=== PATIENT | female | born 1970 | race Caucasian/White ===

== ENCOUNTER 2017-06-03 22:06 | Inpatient (IN) | payer OTHER ==
[~2017-06-03] VITALS: Ht 165.1 cm; Wt 83.7 kg
[~2017-06-03 22:06] MED LIST: B COMPLEX1 CAP PO; CIPRO500 MG PO; COLACE100 MG PO; IBU800 M1 PO; IRON325 M1 PO; KENALOG0.5% TP; METHERGINE0.2 MG PO; MOTRIN800 MG PO; NKHM; PRENATAL1 TA1 PO; TRAMADOL HCL50 MG PO; ULTRAM50 MG PO; VISTARIL25 M1 PO; ZANTAC150 MG PO; ZITHROMAX250 MG PO; ZOFRAN ODT4 MG SL; Zofran4 MG PO; [UNRECOGNIZED DRUG - OTHER] PO
[2017-06-03 22:14] VITALS: BP 154/73
[2017-06-03 22:34] LABS: MEAN CELL VOLUME 63.1 fl (81.0-99.0); MEAN CORPUSCULAR HGB 16.2 pg (27.0-31.0); MEAN CORPUSCULAR HGB CONC 25.7 g/dl (33.0-37.0); MEAN PLATELET VOLUME 9.8 fl (9.6-12.3); PLATELET COUNT AUTOMATED 181 10*3/uL (130-400); RED BLOOD COUNT 3.33 10*6/uL (4.10-5.10); RED CELL DISTRI WIDTH 18.3 % (0-14.5); WHITE BLOOD COUNT 5.3 10*3/uL (4.8-10.8)
[2017-06-03 22:38] LABS: BILIRUBIN NEGATIVE (NEGATIVE); BLOOD NEGATIVE (NEGATIVE); CLARITY SL CLOUDY (CLEAR); COLOR YELLOW (YELLOW); GLUCOSE NEGATIVE (NEGATIVE); KETONE NEGATIVE (NEGATIVE); LEUKO ESTERASE NEGATIVE (NEGATIVE); NITRITE NEGATIVE (NEGATIVE); PH 5.5 (5.0-9.0); SPECIFIC GRAVITY >= 1.030 (1.005-1.030)
[2017-06-03 22:42] LABS: HEMOGLOBIN 5.4 g/dl (12.0-16.0)
[2017-06-03 22:43] LABS: BACTERIA TRACE; MUCOUS 2+
[2017-06-03 22:49] LABS: ALBUMIN 3.7 gm/dl (3.1-4.5); ALKALINE PHOSPHATASE 81 U/L (45-117); BUN 12 mg/dl (7-24); CHLORIDE 110 mmol/L (98-107); CREATININE 0.66 mg/dL (0.55-1.02); POTASSIUM 3.5 mmol/L (3.5-5.1); SGOT/AST 13 IU/L (3-35); SGPT/ALT 16 U/L (12-78); SODIUM 142 mmol/L (136-145); TOTAL PROTEIN 7.1 gm/dL (6.4-8.2)
[2017-06-03 22:58] LABS: BASOPHILS 1 % (0-1); MICROCYTOSIS MODERATE; PLATELET SUFFICIENCY NORMAL (NORMAL); TOTAL CELLS COUNTED 100 #CELLS
[2017-06-03 23:00] LABS: OVALOCYTES MODERATE
[2017-06-03 23:01] LABS: ACT PARTIAL THROMBO TIME 23.4 SECONDS (20.8-31.5); INTERNATIONAL NORM RATIO 0.9 (2.0-3.5)
[2017-06-04] VITALS (9 sets, daily range): BP systolic 102–133; BP diastolic 50–80
[2017-06-04 04:41] LABS: HEMATOCRIT 21.7 % (37.0-47.0); MEAN CORPUSCULAR HGB CONC 26.7 g/dl (33.0-37.0); MEAN PLATELET VOLUME 10.1 fl (9.6-12.3); PLATELET COUNT AUTOMATED 135 10*3/uL (130-400); RED BLOOD COUNT 3.22 10*6/uL (4.10-5.10); RED CELL DISTRI WIDTH 21.2 % (0-14.5); WHITE BLOOD COUNT 3.7 10*3/uL (4.8-10.8)
[2017-06-04 04:42] LABS: MEAN CELL VOLUME 67.4 fl (81.0-99.0)
[2017-06-04 04:43] LABS: HEMOGLOBIN 5.8 g/dl (12.0-16.0)
[2017-06-04 04:51] LABS: ACT PARTIAL THROMBO TIME 24.8 SECONDS (20.8-31.5)
[2017-06-04 05:02] LABS: MICROCYTOSIS MODERATE; PLATELET SUFFICIENCY NORMAL (NORMAL); TOTAL CELLS COUNTED 100 #CELLS
[2017-06-04 05:03] LABS: OVALOCYTES FEW
[2017-06-04 05:22] LABS: ALBUMIN 3.1 gm/dl (3.1-4.5); ALKALINE PHOSPHATASE 66 U/L (45-117); BUN 10 mg/dl (7-24); CHLORIDE 111 mmol/L (98-107); CHOLESTEROL 117 mg/dL (<200); HDL CHOLESTEROL 46 mg/dl (40-60); LDL CHOLESTEROL 60 mg/dL (9-159); MAGNESIUM 2.1 mg/dL (1.5-2.1); PHOSPHOROUS 2.5 mg/dL (2.5-4.9); POTASSIUM 3.3 mmol/L (3.5-5.1); SGOT/AST 11 IU/L (3-35); SGPT/ALT 13 U/L (12-78); SODIUM 143 mmol/L (136-145); TRIGLYCERIDES 57 mg/dl (<150); VLDL CHOLESTEROL 11 mg/dL (6-40)
[2017-06-04 08:11] LABS: HEMATOCRIT 23.3 % (37.0-47.0); HEMOGLOBIN 6.7 g/dl (12.0-16.0)
[2017-06-04 12:30] LABS: BASO # 0.1 10*3/uL (0.0-0.1); BASO % 1.3 % (0.0-1.0); EOS # 0.1 10*3/uL (0.0-0.4); EOS % 1.1 % (1.0-4.0); HEMOGLOBIN 8.4 g/dl (12.0-16.0); LYMPH # 0.8 10*3/uL (1.3-4.4); MEAN CORPUSCULAR HGB 20.4 pg (27.0-31.0); MEAN CORPUSCULAR HGB CONC 28.3 g/dl (33.0-37.0); MEAN PLATELET VOLUME 10.2 fl (9.6-12.3); MONO # 0.5 10*3/uL (0.1-1.0); NEUT # 3.3 10*3/uL (2.3-7.9); NEUT % 70.4 % (47.0-73.0); NUCLEATED RED BLOOD CELL 0.4 % (0.0-0.0); PLATELET COUNT AUTOMATED 145 10*3/uL (130-400); RED BLOOD COUNT 4.12 10*6/uL (4.10-5.10); RED CELL DISTRI WIDTH 23.3 % (0-14.5); WHITE BLOOD COUNT 4.7 10*3/uL (4.8-10.8)
[2017-06-04 12:31] LABS: HEMATOCRIT 29.7 % (37.0-47.0); MEAN CELL VOLUME 72.1 fl (81.0-99.0)
[2017-06-04] MEDS ORDERED: B12,B-12,B 12500 MC1 PO (16:11)
[2017-06-04] MEDS ORDERED: FEROSUL325 MG PO (16:11)
[2017-06-08 05:07] LABS: GONOCOCCUS BY NAA Negative (Negative)
== END 2017-06-04 16:37 | disposition home or self-care (01) | DRG 812 ==
LOC: ED 22:06 → EDHOLD 23:56 → 4E 23:56
PROVIDERS: Hospitalist; Internal Medicine; Student in an Organized Health Care Education/Training Program; ADMIT Internal Medicine
PROC: 30233N1 Transfusion of Nonautologous Red Blood Cells into Peripheral Vein, Percutaneous Approach (ICD-10-PCS; principal; 2017-06-04)
DX: D50.9 Iron deficiency anemia, unspecified (principal); E44.1 Mild protein-calorie malnutrition; I10 Essential (primary) hypertension; N83.9 Noninflammatory disorder of ovary, fallopian tube and broad ligament, unspecified; E87.6 Hypokalemia; E53.8 Deficiency of other specified B group vitamins; D72.819 Decreased white blood cell count, unspecified; K57.90 Diverticulosis of intestine, part unspecified, without perforation or abscess without bleeding; N83.209 Unspecified ovarian cyst, unspecified side; Z98.84 Bariatric surgery status; Z90.49 Acquired absence of other specified parts of digestive tract; Z82.49 Family history of ischemic heart disease and other diseases of the circulatory system; Z83.6 Family history of other diseases of the respiratory system; Z79.899 Other long term (current) drug therapy; Z98.890 Other specified postprocedural states; Z68.30 Body mass index [BMI] 30.0-30.9, adult

== ENCOUNTER 2017-09-03 09:01 | Emergency (ER) | payer OTHER ==
[~2017-09-03] VITALS: Ht 167.6 cm; Wt 81.6 kg
[~2017-09-03 09:01] MED LIST changes: +B12,B-12,B 12500 MC1 PO; +FEROSUL325 MG PO
[2017-09-03 09:07] VITALS: BP 142/56
[2017-09-03 09:36] LABS: BASO # 0.1 10*3/uL (0.0-0.1); BASO % 1.7 % (0.0-1.0); EOS # 0.1 10*3/uL (0.0-0.4); EOS % 2.5 % (1.0-4.0); HEMATOCRIT 29.3 % (37.0-47.0); HEMOGLOBIN 8.1 g/dl (12.0-16.0); LYMPH # 1.1 10*3/uL (1.3-4.4); LYMPH % 28.4 % (27.0-41.0); MEAN CELL VOLUME 72.5 fl (81.0-99.0); MEAN CORPUSCULAR HGB CONC 27.6 g/dl (33.0-37.0); MEAN PLATELET VOLUME 10.1 fl (9.6-12.3); MONO # 0.3 10*3/uL (0.1-1.0); MONO % 7.2 % (3.0-9.0); NEUT # 2.4 10*3/uL (2.3-7.9); PLATELET COUNT AUTOMATED 252 10*3/uL (130-400); RED BLOOD COUNT 4.04 10*6/uL (4.10-5.10); RED CELL DISTRI WIDTH 16.8 % (0-14.5)
[2017-09-03 09:49] LABS: ALBUMIN 3.9 gm/dl (3.1-4.5); ALKALINE PHOSPHATASE 83 U/L (45-117); BUN 14 mg/dl (7-24); CHLORIDE 108 mmol/L (98-107); CREATININE 0.72 mg/dL (0.55-1.02); POTASSIUM 3.5 mmol/L (3.5-5.1); SGOT/AST 14 IU/L (3-35); SGPT/ALT 20 U/L (12-78); SODIUM 142 mmol/L (136-145); TOTAL PROTEIN 7.4 gm/dL (6.4-8.2)
[2017-09-03 09:51] LABS: ACT PARTIAL THROMBO TIME 25.2 SECONDS (20.8-31.5); INTERNATIONAL NORM RATIO 0.9 (2.0-3.5)
[2017-09-03 10:03] LABS: RETICULOCYTE % 0.65 % (0.50-2.50)
[2017-09-03 10:08] LABS: IRON 14 ug/dL (50-170); TOTAL IRON BINDING CAPACITY 447 ug/dl (250-450)
== END 2017-09-03 09:58 | disposition home or self-care (01) ==
LOC: ED 09:01
PROVIDERS: Emergency Medicine
DX: D64.9 Anemia, unspecified (principal); R06.02 Shortness of breath; G89.29 Other chronic pain; I10 Essential (primary) hypertension; E87.6 Hypokalemia; E44.1 Mild protein-calorie malnutrition; Z90.49 Acquired absence of other specified parts of digestive tract; Z98.84 Bariatric surgery status; Z79.899 Other long term (current) drug therapy

== ENCOUNTER → 2017-09-04 | Outpatient (CLI) | payer OTHER ==
[2017-09-04 14:15] VITALS: BP 123/75
--- NOTE | 2017-09-04 14:17 | NUR ---
Informed consent obtained from patient for Blood transfussion by Patient identified by arm band. Vital signs recorded. Blood unit number verified by 2 R.N.'s. I.V. site satisfactory. Unit 1 started at a KVO rate with Normal Saline. DIANA VIERA
[2017-09-04 14:40] VITALS: BP 144/68
[2017-09-04 15:20] VITALS: BP 160/82
[2017-09-04 16:00] VITALS: BP 142/82
[2017-09-04 18:55] LABS: HEMOGLOBIN 8.6 g/dl (12.0-16.0)
== END | disposition home or self-care (01) ==
LOC: TRNFUSION 12:39
PROVIDERS: Internal Medicine Hematology & Oncology
DX: D64.9 Anemia, unspecified (principal)

== ENCOUNTER → 2017-12-09 | Day surgery (SDC) | payer OTHER ==
[2017-12-09] VITALS (7 sets, daily range): BP systolic 102–139; BP diastolic 49–69
[~2017-12-09] VITALS: Ht 167.6 cm; Wt 81.6 kg
[~2017-12-09] MED LIST changes: +NORCO 5-325 TA1 EACH PO
--- NOTE | ~2017-12-09 | PROC NOTE ---
[place], [place] PROCEDURE NOTE NAME: LUIS FELIPE MORRIS [facility] [id number] UNIT #: [id number] ROOM: DOCTOR: PANKAJ GOMEZ MD BIRTHDATE: [birth year] DOS: 12/09/2017 PREOPERATIVE DIAGNOSES: Iron deficiency anemia, poor IV access. POSTOPERATIVE DIAGNOSES: Iron deficiency anemia, poor IV access. PROCEDURE: Left internal jugular MediPort placement. SURGEON: Pankaj Gomez MD CRYPTOZOOLOGIST: MABEL. ANESTHESIA: MAC with 1% plain lidocaine. INDICATION: This is a 47-year-old lady who receives frequent iron transfusions for chronic iron deficiency anemia and who has poor IV access, who has been referred for a MediPort placement. The procedure and its complications were explained to the patient in detail preoperatively. Complications that were discussed included but were not limited to, bleeding, hemothorax, pneumothorax, prolonged postoperative pain, infection and she agreed to proceed. DESCRIPTION OF PROCEDURE: After identifying the patient, the patient was brought to the operating suite and laid in the supine position. After IV sedation was administered, the patient was repositioned by placing a shoulder roll under the shoulder blades and turning the patient's head to the right side. The parts were then painted and draped in the usual sterile fashion. A time-out procedure was called. With the help of the ultrasound, the left internal jugular vein was accessed percutaneously. A guidewire was placed, which showed position of the guidewire was in good position with the help of fluoroscopy. Thereafter, local anesthesia was infiltrated in the area of the anterior chest wall where the port was planned to be placed. The skin and the subcutaneous tissue were incised after local anesthesia was infiltrated and a pocket was created in the subcutaneous space. Thereafter, introducer with the catheter was passed from the incision made on the anterior chest wall to the percutaneous access site in the neck. Over the guidewire, the dilator and the sheath were placed and the guidewire was pulled out. The catheter was then threaded through this sheath into the superior vena cava and it was then confirmed by looking at it on fluoroscopy and also talking to the radiologist who confirmed that the placement of the catheter was in the right position. The catheter was cut to size and the port was then attached to the cut end. Heparin was injected and was found to have good flow and there was good flow of blood in the reverse direction. The port was then fixed with the help of 3-0 Prolene to the underlying subcutaneous tissue and the subcutaneous tissue of the incision in the anterior chest wall was approximated with the help of 3-0 Vicryl in a running fashion and the skin edges were approximated with the help of 4-0 Vicryl in a subcuticular running fashion. The access site on the left neck was also closed with the help of a single 4-0 stitch with Vicryl. Dressing was placed and the port was accessed again percutaneously and it was found to have good blood return and good flow to heparin. The patient was then taken to the recovery room in stable fashion where a chest x-ray was ordered. There were no [place], [place] PROCEDURE NOTE NAME: LUIS FELIPE MORRIS JO UNIT #: [id number] ROOM: DOCTOR: PANKAJ GOMEZ MD BIRTHDATE: [address] Pankaj Gomez, the attending surgeon, was present throughout the operating case. Pankaj Gomez MD CM:PROCNOTE:PROCEDURE NOTE [id number] PANKAJ GOMEZ MD
== END | disposition home or self-care (01) ==
LOC: SDC 12-07 14:00
DX: Z45.2 Encounter for adjustment and management of vascular access device (principal); D50.0 Iron deficiency anemia secondary to blood loss (chronic); I10 Essential (primary) hypertension; Z98.84 Bariatric surgery status; Z90.49 Acquired absence of other specified parts of digestive tract; Z98.890 Other specified postprocedural states; Z80.9 Family history of malignant neoplasm, unspecified

== ENCOUNTER 2018-05-02 19:19 | Emergency (ER) | payer OTHER ==
[~2018-05-02] VITALS: Ht 167.6 cm; Wt 81.6 kg
[2018-05-02 19:22] VITALS: BP 130/59
== END 2018-05-02 20:49 | disposition home or self-care (01) ==
LOC: ED 19:19
DX: T82.898A Other specified complication of vascular prosthetic devices, implants and grafts, initial encounter (principal)

== ENCOUNTER 2018-05-31 18:30 | Emergency (ER) | payer OTHER ==
[~2018-05-31] VITALS: Wt 85.3 kg
--- NOTE | ~2018-05-31 | EKG ---
[place], [place] ELECTROCARDIOGRAM REPORT NAME: LUIS FELIPE MORRIS UNIT #: [id number] ROOM: DOCTOR: EPIPHANY DRAFT REPORT BIRTHDATE: [birth year] [facility] Test Date: 2018-05-31 Test Time: 19:08:42 Pat Name: LUIS FELIPE MORRIS Department: Room: Gender: F Oncology Physician: SS RESP : 1970 Requested By: JUANCHO VORA DNP Order Number: [id number] Reading MD: Bishop Byrd MD Measurements Intervals Malcolm Rate: 61 P: 39 KS: 162 QRS: 40 QRSD: 100 T: 27 QT: 420 QTc: 423 Interpretive Statements Sinus rhythm Normal ECG Compared to ECG 05/22/2018 08:53:24 No significant changes Electronically Signed On 06-02-2018 10:43:02 PDT by Bishop Byrd MD CM:EKGRPT:ELECTROCARDIOGRAM REPORT 07 1043 JUANCHO FONTANA DRAFT REPORT JUANCHO VORA DNP
[2018-05-31 18:54] LABS: BASO # 0.1 10*3/uL (0.0-0.1); BASO % 1.2 % (0.0-1.0); EOS # 0.1 10*3/uL (0.0-0.4); EOS % 1.5 % (1.0-4.0); HEMOGLOBIN 8.6 g/dl (12.0-16.0); LYMPH # 1.2 10*3/uL (1.3-4.4); MEAN CELL VOLUME 79.7 fl (81.0-99.0); MEAN CORPUSCULAR HGB 23.6 pg (27.0-31.0); MEAN CORPUSCULAR HGB CONC 29.7 g/dl (33.0-37.0); MEAN PLATELET VOLUME 10.8 fl (9.6-12.3); MONO # 0.3 10*3/uL (0.1-1.0); MONO % 4.8 % (3.0-9.0); NEUT # 3.6 10*3/uL (2.3-7.9); NEUT % 69.3 % (47.0-73.0); PLATELET COUNT AUTOMATED 183 10*3/uL (130-400); RED BLOOD COUNT 3.64 10*6/uL (4.10-5.10); RED CELL DISTRI WIDTH 23.2 % (0-14.5); WHITE BLOOD COUNT 5.2 10*3/uL (4.8-10.8)
[2018-05-31 19:11] LABS: ALBUMIN 3.7 gm/dl (3.1-4.5); ALKALINE PHOSPHATASE 66 U/L (45-117); BUN 12 mg/dl (7-24); CHLORIDE 109 mmol/L (98-107); CREATININE 0.84 mg/dL (0.55-1.02); SGOT/AST 11 IU/L (3-35); SGPT/ALT 16 U/L (12-78); SODIUM 142 mmol/L (136-145); TOTAL PROTEIN 6.6 gm/dL (6.4-8.2)
[2018-05-31 19:12] LABS: TROPONIN I < 0.015 ng/ml (<0.045)
[2018-05-31 20:03] VITALS: BP 123/69
== END 2018-05-31 20:30 | disposition home or self-care (01) ==
LOC: ED 18:30
PROVIDERS: Nurse Practitioner Family
DX: M43.6 Torticollis (principal); R51 Headache; R42 Dizziness and giddiness; R06.02 Shortness of breath; Z87.891 Personal history of nicotine dependence

== ENCOUNTER → 2018-06-18 | Outpatient (CLI) | payer OTHER ==
[2018-06-18 16:02] LABS: BASO # 0.1 10*3/uL (0.0-0.1); BASO % 1.3 % (0.0-1.0); EOS # 0.1 10*3/uL (0.0-0.4); EOS % 1.5 % (1.0-4.0); HEMOGLOBIN 10.1 g/dl (12.0-16.0); LYMPH # 1.2 10*3/uL (1.3-4.4); LYMPH % 26.2 % (27.0-41.0); MEAN CELL VOLUME 79.1 fl (81.0-99.0); MEAN CORPUSCULAR HGB 23.5 pg (27.0-31.0); MEAN CORPUSCULAR HGB CONC 29.7 g/dl (33.0-37.0); MEAN PLATELET VOLUME 10.8 fl (9.6-12.3); MONO # 0.4 10*3/uL (0.1-1.0); MONO % 7.5 % (3.0-9.0); NEUT # 2.9 10*3/uL (2.3-7.9); NEUT % 63.3 % (47.0-73.0); PLATELET COUNT AUTOMATED 205 10*3/uL (130-400); WHITE BLOOD COUNT 4.7 10*3/uL (4.8-10.8)
[2018-06-18 16:15] LABS: IRON 47 ug/dL (50-170); TOTAL IRON BINDING CAPACITY 396 ug/dl (250-450)
== END | disposition home or self-care (01) ==
LOC: LAB 15:28
PROVIDERS: Nurse Practitioner Primary Care
DX: D50.9 Iron deficiency anemia, unspecified (principal)

== ENCOUNTER 2019-01-18 23:19 | Emergency (ER) | payer OTHER ==
--- NOTE | ~2019-01-18 | EKG ---
[place], [place] ELECTROCARDIOGRAM REPORT NAME: LUIS FELIPE MORRIS UNIT #: [id number] ROOM: DOCTOR: EPIPHANY DRAFT REPORT BIRTHDATE: [birth year] [facility] Test Date: 2019-01-18 Test Time: 23:28:08 Pat Name: LUIS FELIPE MORRIS Department: Room: Gender: F Upper Inspector: Greg Ahmadi : 1970 Requested By: TRE ALEX PA-C Order Number: [id number] Reading MD: Bishop Byrd MD Measurements Intervals [place] Rate: 65 P: 72 PA: 173 QRS: 53 QRSD: 97 T: 27 QT: 400 QTc: 416 Interpretive Statements Sinus rhythm Low voltage, precordial leads Baseline wander in lead(s) V1,V3 Compared to ECG 05/31/2018 19:08:42 Low QRS voltage now present Electronically Signed On 01-20-2019 13:49:58 PDT by Bishop Byrd MD CM:EKGRPT:ELECTROCARDIOGRAM REPORT [id number] TRE ALEX PA-C EPIPHANY DRAFT REPORT TRE ALEX PA-C
[2019-01-18 23:50] LABS: BASO # 0.1 10*3/uL (0.0-0.1); BASO % 0.9 % (0.0-1.0); EOS # 0.1 10*3/uL (0.0-0.4); EOS % 1.7 % (1.0-4.0); HEMATOCRIT 32.1 % (37.0-47.0); HEMOGLOBIN 10.8 g/dl (12.0-16.0); LYMPH # 1.9 10*3/uL (1.3-4.4); LYMPH % 29.6 % (27.0-41.0); MEAN CELL VOLUME 91.2 fl (81.0-99.0); MEAN CORPUSCULAR HGB 30.7 pg (27.0-31.0); MEAN CORPUSCULAR HGB CONC 33.6 g/dl (33.0-37.0); MEAN PLATELET VOLUME 10.4 fl (9.6-12.3); MONO # 0.4 10*3/uL (0.1-1.0); MONO % 5.6 % (3.0-9.0); NEUT # 4.1 10*3/uL (2.3-7.9); PLATELET COUNT AUTOMATED 245 10*3/uL (130-400); RED BLOOD COUNT 3.52 10*6/uL (4.10-5.10); RED CELL DISTRI WIDTH 13.3 % (0-14.5); WHITE BLOOD COUNT 6.6 10*3/uL (4.8-10.8)
[2019-01-19 00:07] LABS: ALBUMIN 3.8 gm/dl (3.1-4.5); ALKALINE PHOSPHATASE 64 U/L (45-117); BUN 15 mg/dl (7-24); CHLORIDE 111 mmol/L (98-107); CREATININE 0.71 mg/dL (0.55-1.02); POTASSIUM 3.6 mmol/L (3.5-5.1); SGOT/AST 13 IU/L (3-35); SGPT/ALT 18 U/L (12-78); SODIUM 143 mmol/L (136-145); TOTAL PROTEIN 6.5 gm/dL (6.4-8.2)
[2019-01-19 00:08] LABS: TROPONIN I < 0.015 ng/ml (<0.045)
[2019-01-19 00:20] LABS: INTERNATIONAL NORM RATIO 0.9 (2.0-3.5)
[2019-01-19 00:43] VITALS: BP 115/64
== END 2019-01-19 01:31 | disposition home or self-care (01) ==
LOC: ED 23:19
PROVIDERS: Physician Assistant
DX: R00.2 Palpitations (principal); R53.83 Other fatigue; R06.02 Shortness of breath; Z87.891 Personal history of nicotine dependence; Z86.2 Personal history of diseases of the blood and blood-forming organs and certain disorders involving the immune mechanism

== ENCOUNTER 2019-09-09 09:55 | Emergency (ER) | payer OTHER ==
[~2019-09-09] VITALS: Ht 167.6 cm; Wt 74.8 kg
[2019-09-09 09:56] VITALS: BP 123/70
[2019-09-09] MEDS ORDERED: ZITHROMAX250 MG PO (10:56)
== END 2019-09-09 11:08 | disposition home or self-care (01) ==
LOC: ED 09:55
DX: J40 Bronchitis, not specified as acute or chronic (principal); T82.848A Pain due to vascular prosthetic devices, implants and grafts, initial encounter; I10 Essential (primary) hypertension; D64.9 Anemia, unspecified; Z87.891 Personal history of nicotine dependence; Z90.49 Acquired absence of other specified parts of digestive tract

== ENCOUNTER 2023-05-16 21:15 | Emergency (ER) | payer OTHER ==
[~2023-05-16] VITALS: Ht 167.6 cm; Wt 74.8 kg
[2023-05-16 21:55] LABS: BASO # 0.1 10*3/uL (0.0-0.1); BASO % 1.5 % (0.0-1.0); EOS # 0.1 10*3/uL (0.0-0.4); EOS % 1.3 % (1.0-4.0); HEMATOCRIT 36.2 % (37.0-47.0); LYMPH # 1.2 10*3/uL (1.3-4.4); LYMPH % 24.8 % (27.0-41.0); MEAN CELL VOLUME 87.9 fl (81.0-99.0); MEAN CORPUSCULAR HGB 30.1 pg (27.0-31.0); MEAN CORPUSCULAR HGB CONC 34.3 g/dl (33.0-37.0); MEAN PLATELET VOLUME 10.3 fl (9.6-12.3); MONO # 0.4 10*3/uL (0.1-1.0); MONO % 8.1 % (3.0-9.0); NEUT # 3.1 10*3/uL (2.3-7.9); NEUT % 64.1 % (47.0-73.0); PLATELET COUNT AUTOMATED 200 10*3/uL (130-400); RED BLOOD COUNT 4.12 10*6/uL (4.10-5.10); RED CELL DISTRI WIDTH 12.4 % (0-14.5); WHITE BLOOD COUNT 4.8 10*3/uL (4.8-10.8)
[2023-05-16 22:07] LABS: ACT PARTIAL THROMBO TIME 28.5 SECONDS (20.0-32.1)
[2023-05-16 22:28] LABS: ALKALINE PHOSPHATASE 78 U/L (46-116); BUN 12 mg/dl (9-23); CHLORIDE 109 mmol/L (98-107); POTASSIUM 3.5 mmol/L (3.4-5.1); SGPT/ALT 11 U/L (10-49); TOTAL PROTEIN 6.5 gm/dL (6.0-8.0)
[2023-05-17 00:13] VITALS: BP 164/80
== END 2023-05-17 00:18 | disposition home or self-care (01) ==
LOC: ED 21:15
PROVIDERS: Internal Medicine
DX: R06.00 Dyspnea, unspecified (principal); R51.9 Headache, unspecified; R91.1 Solitary pulmonary nodule; Z79.2 Long term (current) use of antibiotics; Z79.899 Other long term (current) drug therapy; Z90.49 Acquired absence of other specified parts of digestive tract; Z98.84 Bariatric surgery status; Z87.891 Personal history of nicotine dependence

== ENCOUNTER → 2024-03-09 | Outpatient (CLI) | payer OTHER ==
[2024-03-09 12:06] LABS: BASO # 0.1 10*3/uL (0.0-0.1); BASO % 1.3 % (0.0-1.0); EOS # 0.1 10*3/uL (0.0-0.4); EOS % 2.1 % (1.0-4.0); HEMATOCRIT 27.5 % (37.0-47.0); LYMPH % 25.5 % (27.0-41.0); MEAN CELL VOLUME 92.9 fl (81.0-99.0); MEAN CORPUSCULAR HGB 29.4 pg (27.0-31.0); MEAN CORPUSCULAR HGB CONC 31.6 g/dl (33.0-37.0); MEAN PLATELET VOLUME 10.2 fl (9.6-12.3); MONO # 0.3 10*3/uL (0.1-1.0); NEUT # 2.4 10*3/uL (2.3-7.9); NEUT % 62.8 % (47.0-73.0); PLATELET COUNT AUTOMATED 298 10*3/uL (130-400); RED BLOOD COUNT 2.96 10*6/uL (4.10-5.10); RED CELL DISTRI WIDTH 13.8 % (0-14.5); WHITE BLOOD COUNT 3.8 10*3/uL (4.8-10.8)
== END | disposition home or self-care (01) ==
LOC: LAB 11:36
PROVIDERS: ATTEND Internal Medicine
DX: D64.9 Anemia, unspecified (principal)

== ENCOUNTER → 2024-05-23 | Outpatient (CLI) | payer OTHER ==
[2024-05-23 13:36] LABS: BASO # 0.1 10*3/uL (0.0-0.1); BASO % 1.5 % (0.0-1.0); EOS # 0.1 10*3/uL (0.0-0.4); EOS % 2.8 % (1.0-4.0); HEMATOCRIT 31.6 % (37.0-47.0); LYMPH # 1.1 10*3/uL (1.3-4.4); LYMPH % 28.3 % (27.0-41.0); MEAN CELL VOLUME 82.5 fl (81.0-99.0); MEAN CORPUSCULAR HGB CONC 29.1 g/dl (33.0-37.0); MEAN PLATELET VOLUME 10.1 fl (9.6-12.3); MONO # 0.3 10*3/uL (0.1-1.0); MONO % 8.5 % (3.0-9.0); NEUT # 2.4 10*3/uL (2.3-7.9); NEUT % 58.9 % (47.0-73.0); PLATELET COUNT AUTOMATED 248 10*3/uL (130-400); RED BLOOD COUNT 3.83 10*6/uL (4.10-5.10); RED CELL DISTRI WIDTH 16.2 % (0-14.5)
== END | disposition home or self-care (01) ==
LOC: LAB 13:21
PROVIDERS: ATTEND Student in an Organized Health Care Education/Training Program
DX: K92.2 Gastrointestinal hemorrhage, unspecified (principal)

== ENCOUNTER 2024-08-19 05:40 | Emergency (ER) | payer OTHER ==
[~2024-08-19] VITALS: Ht 167.6 cm; Wt 72.6 kg
[2024-08-19 05:50] VITALS: BP 135/80
[2024-08-19 06:26] LABS: BUN 14 mg/dl (9-23); CHLORIDE 112 mmol/L (98-107); POTASSIUM 3.9 mmol/L (3.4-5.1)
[2024-08-19 06:31] LABS: BASO # 0.1 10*3/uL (0.0-0.1); BASO % 1.2 % (0.0-1.0); EOS # 0.1 10*3/uL (0.0-0.4); EOS % 2.5 % (1.0-4.0); HEMATOCRIT 31.7 % (37.0-47.0); MEAN CELL VOLUME 80.9 fl (81.0-99.0); MEAN CORPUSCULAR HGB 24.7 pg (27.0-31.0); MEAN CORPUSCULAR HGB CONC 30.6 g/dl (33.0-37.0); MEAN PLATELET VOLUME 10.2 fl (9.6-12.3); MONO # 0.3 10*3/uL (0.1-1.0); MONO % 8.4 % (3.0-9.0); NEUT # 2.1 10*3/uL (2.3-7.9); PLATELET COUNT AUTOMATED 242 10*3/uL (130-400); RED BLOOD COUNT 3.92 10*6/uL (4.10-5.10); WHITE BLOOD COUNT 4.1 10*3/uL (4.8-10.8)
[2024-08-19] MEDS ORDERED: VENT7GM INH (07:03)
[2024-08-19] MEDS ORDERED: Ketorolac Tromethamine 30 MG/ML VIAL IM ONE (07:05)
== END 2024-08-19 07:06 | disposition home or self-care (01) ==
LOC: ED 05:40
PROVIDERS: Internal Medicine
DX: R06.00 Dyspnea, unspecified (principal); M54.50 Low back pain, unspecified; Z90.49 Acquired absence of other specified parts of digestive tract; Z98.84 Bariatric surgery status; Z87.891 Personal history of nicotine dependence

== ENCOUNTER 2024-10-02 13:10 | Emergency (ER) | payer OTHER ==
[~2024-10-02] VITALS: Ht 167.6 cm; Wt 72.6 kg
[~2024-10-02 13:10] MED LIST changes: +VENT7GM INH
[2024-10-02 13:31] VITALS: BP 144/67
[2024-10-02] MEDS ORDERED: KENALOG 0.1%80 GM T (13:57)
[2024-10-02] MEDS ORDERED: CEPHALEXIN500 M1 PO (13:57)
[2024-10-02] MEDS ORDERED: methylPREDNISolone sod succ 125 MG VIAL IM ONE (14:00)
[2024-10-02] MEDS ORDERED: CEPHALEXIN 500 MG CAP PO ONE (14:00)
== END 2024-10-02 14:15 | disposition home or self-care (01) ==
LOC: ED 13:10
DX: L25.9 Unspecified contact dermatitis, unspecified cause (principal); F41.9 Anxiety disorder, unspecified; D64.9 Anemia, unspecified; I10 Essential (primary) hypertension; E83.51 Hypocalcemia; F12.90 Cannabis use, unspecified, uncomplicated; F14.90 Cocaine use, unspecified, uncomplicated; Z90.49 Acquired absence of other specified parts of digestive tract; Z98.890 Other specified postprocedural states; Z87.891 Personal history of nicotine dependence

== ENCOUNTER 2025-01-20 11:32 | Emergency (ER) | payer OTHER ==
[~2025-01-20] VITALS: Ht 167.6 cm; Wt 72.6 kg
[~2025-01-20 11:32] MED LIST changes: +CEPHALEXIN500 M1 PO; +KENALOG 0.1%80 GM T
[2025-01-20 11:59] VITALS: BP 143/77
[2025-01-20] MEDS ORDERED: NAPROXEN 250 MG TAB PO ONE (12:20)
[2025-01-20] MEDS ORDERED: METHOCARBAMOL 750 MG TAB PO ONE (12:20)
[2025-01-20 12:33] LABS: BASO # 0.1 10*3/uL (0.0-0.1); BASO % 1.1 % (0.0-1.0); EOS # 0.1 10*3/uL (0.0-0.4); EOS % 2.5 % (1.0-4.0); HEMATOCRIT 29.4 % (37.0-47.0); MEAN CELL VOLUME 82.4 fl (81.0-99.0); MEAN CORPUSCULAR HGB 24.4 pg (27.0-31.0); MEAN CORPUSCULAR HGB CONC 29.6 g/dl (33.0-37.0); MONO # 0.4 10*3/uL (0.1-1.0); NEUT # 2.7 10*3/uL (2.3-7.9); NEUT % 62.7 % (47.0-73.0); PLATELET COUNT AUTOMATED 271 10*3/uL (130-400); RED BLOOD COUNT 3.57 10*6/uL (4.10-5.10); RED CELL DISTRI WIDTH 13.9 % (0-14.5); WHITE BLOOD COUNT 4.4 10*3/uL (4.8-10.8)
[2025-01-20 12:55] LABS: BUN 13 mg/dl (9-23); CHLORIDE 109 mmol/L (98-107); POTASSIUM 4.1 mmol/L (3.4-5.1)
[2025-01-20] MEDS ORDERED: METHOCARBAMOL500 M1 PO (13:03)
[2025-01-20] MEDS ORDERED: PREDNISONE50 MG PO (13:03)
== END 2025-01-20 13:06 | disposition home or self-care (01) ==
LOC: ED 11:32
PROVIDERS: Nurse Practitioner Family
DX: M54.42 Lumbago with sciatica, left side (principal); R20.0 Anesthesia of skin; R25.2 Cramp and spasm; Z90.49 Acquired absence of other specified parts of digestive tract; Z98.84 Bariatric surgery status; Z98.890 Other specified postprocedural states; Z87.891 Personal history of nicotine dependence

== ENCOUNTER 2025-08-04 06:08 | Emergency (ER) | payer OTHER ==
[~2025-08-04 06:08] MED LIST changes: +METHOCARBAMOL500 M1 PO; +PREDNISONE50 MG PO
[2025-08-04] MEDS ORDERED: HEPARIN SODIUM 500 UNIT/5 ML SYR IV ONE (07:10)
[2025-08-04 07:33] VITALS: BP 134/72
== END 2025-08-04 07:27 | disposition home or self-care (01) ==
LOC: ED 06:08
DX: Z45.2 Encounter for adjustment and management of vascular access device (principal); R06.00 Dyspnea, unspecified; Z79.899 Other long term (current) drug therapy; Z98.890 Other specified postprocedural states; Z90.49 Acquired absence of other specified parts of digestive tract; Z98.84 Bariatric surgery status; Z87.891 Personal history of nicotine dependence